=== PATIENT | female | born 1940 | race Caucasian/White ===

== ENCOUNTER 2022-04-19 06:36 | Emergency (ER) | payer MEDICARE, BC, SELFPAY ==
[2022-04-19 06:49] VITALS: BP 186/104; PULSE 100; RESP 16; TEMP 36.4; O2SAT 98; BMI 21.7
--- NOTE | 2022-04-19 06:58 | ED.ALLEREA ---
HPI - Allergic Reaction General Chief complaint: Allergic Reaction Stated complaint: allergic rx Time Seen by Provider: 04/19/22 06:51 Source: patient Mode of arrival: ambulatory Limitations: no limitations History of Present Illness MD complaint: hives Onset (ago): day(s) (couple) Exposure: unknown Known history of allergy to: when she visited this same friend 4 years ago she also developed hives at that time but has unknown trigger Symptoms: rash, itching, facial swelling and lip swelling Severity: mild Treatment prior to arrival: none Previous Allergic Reaction History: prior ED visit(s) Related Data Previous Rx's Medication Instructions Recorded cetirizine 10 mg tablet 10 mg PO DAILY PRN allergy 04/19/22 symptoms #30 tabs famotidine 20 mg tablet (Pepcid) 20 mg PO DAILY abdominal 04/19/22 discomfort #10 tabs prednisone 20 mg tablet 20 mg PO DAILY 5 days #5 tabs 04/19/22 Allergies Allergy/AdvReac Type Severity Reaction Status Date / Time cantaloupe Allergy Unknown Verified 04/19/22 06:49 milk Allergy Unknown Verified 04/19/22 06:49 wheat Allergy Unknown Verified 04/19/22 06:49 Review of Systems Review of Systems: Constitutional : No Fever, No Chills ENT/Mouth : nooral swelling, No Hoarseness, No Swallowing Difficulty Eyes: No Eye Pain, No Swelling, No Redness Cardiovascular : No Chest Pain, No SOB Respiratory : No Cough, No Sputum, No Wheezing, No Dyspnea Gastrointestinal : No Nausea, No Vomiting, No Diarrhea, No abdominal Pain Genitourinary : No Dysuria, No Urinary Frequency, No Hematuria Musculoskeletal : No joint pain, No Myalgias, No Joint Swelling Skin : No Skin Lesions, positive rash Neuro : No Weakness, No Numbness, No Headache PMFSH Past Medical History Attestation statement: The following information was validated with the patient. Medical History No pertinent past medical history Social History Social History (Updated 04/19/22 @ 07:05 by Aida Gómez DO) Patient Tobacco Use Status: Never used Tobacco Physical Exam ED Vital Signs: Vital Signs - 24 hr 04/19/22 06:49 Temperature 97.5 F Pulse Rate 100 Respiratory Rate 16 Blood Pressure 186/104 H Pulse Oximetry 98 Oxygen Delivery Method Room Air BMI result Body Mass Index 21.7 Appearance: Alert. Oriented X3. No acute distress. Eyes: Pupils equal, round and reactive to light. ENT: Pharynx normal. no swelling Neck: Normal inspection. Neck supple. no stridor CVS: Normal heart rate and rhythm. Pulses normal. Respiratory: No respiratory distress. Breath sounds normal. Abdomen: Soft and nontender. Skin: Skin warm and dry. Normal skin color. patchy areas of hives seen on both wrists/neck and some of chest area - she is itching the area Extremities: No lower extremity edema. Neuro: Oriented X 3. No motor deficit. No sensory deficit. MDM - Allergic Reaction MDM Narrative Medical decision making narrative: 82 yo female no sig PMH has been staying at a friends house (4 years ago also developed hives there) she notes patchy intermittent areas of hives since staying with him. She cannot think of a trigger, no resp or GI issues. At this time will start on pepcid, prednisone (low dose), zyrtec and DC home with precautions. topical OTC for itching. Discharge Plan Discharge Clinical Impression: Urticaria Patient Disposition: Home, Self-Care Instructions: Urticaria (ED) Additional Instructions: return to ED for any worsening symptoms or concerns you can also use over the counter 1% hydrocortisone cream as needed for itching or topical benadryl Prescriptions: New prednisone 20 mg tablet 20 mg PO DAILY 5 Days Qty: 5 0RF famotidine [Pepcid] 20 mg tablet 20 mg PO DAILY Qty: 10 0RF cetirizine 10 mg tablet 10 mg PO DAILY PRN (Reason: allergy symptoms) Qty: 30 0RF
== END 2022-04-19 07:21 | disposition home or self-care (01) ==
LOC: HO.ED 07:11
PROVIDERS: Emergency Provider Emergency Medicine; PCP Family Medicine
DX: L50.9 Urticaria, unspecified (principal)
CPT/HCPCS: 99282; 99283